=== PATIENT | female | born 1960 | race Caucasian/White ===

== ENCOUNTER 2016-07-30 12:57 | Outpatient (CLI) | payer BC ==
--- NOTE | 2016-07-30 15:07 | DIAGNOSTIC IMAGING REPORT ---
PROCEDURE: MG UNILATERAL DIAG-LT W/CAD INDICATION: Follow-up density in the upper outer left breast. TECHNIQUE: Exaggerated CC and true-lateral digital views of left breast. In addition, spot compression exaggerated CC and MLO views were obtained of the upper outer left breast (region of clinical concern). Finally, high-resolution left breast ultrasound was performed (18 mHz). COMPARISON: Comparison is made to prior studies from [facility] in [facility] on 07/09/2016, 08/09/2014, and 06/09/2013. FINDINGS: MAMMOGRAM: Computer-aided detection applied. Moderately dense parenchymal pattern. No evidence of mass or architectural distortion. No evidence of suspicious calcification. BREAST ULTRASOUND: Normal parenchyma. No evidence of mass or cyst. IMPRESSION: 1. Negative mammogram and negative left breast ultrasound. 2. Findings discussed with the patient. 3. Resume routine screening schedule (June 2017). RESULT CODE: 1- Negative. A. A negative report should not delay biopsy if a dominant or clinically suspicious mass is present. 10-15% of cancers are not identified by x-ray. B. A negative report may reinforce clinical impression. C. Adenosis and dense breasts may obscure an underlying neoplasm. D. False positive reports average 6-10%. E.. A yearly screening mammogram is recommended. A reminder letter will be scheduled.
== END 2016-07-30 23:00 ==
LOC: MAM SRH 12:57
DX: R92.8 Other abnormal and inconclusive findings on diagnostic imaging of breast (principal); R92.2 Inconclusive mammogram